=== PATIENT | female | born 1995 ===

== ENCOUNTER 2018-06-21 19:42 | Emergency (ER) | payer SELFPAY ==
[2018-06-21] MEDS ORDERED: Sodium Chloride 0.9% 1,000 ML IV ONE ×2 (21:04→22:33)
--- NOTE | 2018-06-21 21:11 | ED PDOC ---
HPI: Abdomen Time Seen by Provider: 06/21/18 20:44 Chief Complaint (Nursing): GI Problem Chief Complaint (Provider): Pelvic Pain/Preg History Per: Patient History/Exam Limitations: no limitations Onset/Duration Of Symptoms: Days (four to five) Outside of [place] travel?: No Current Symptoms Are (Timing): Still Present (Pt presents to the) Additional Complaint(s): Pt presents to the ED approximately six weeks by a home test complaining of persistent nausea and vomiting that has been prevalent for approximately four days. The patient has left side pelvic pain as well but she denies bleeding, discharge. Pt complains of a sore throat as well. The patient denies fever, diarhhea, constipation, abdominal tenderness. The patient has not yet established OB care nor has she begun prenat vitamins Abnormal Vaginal Bleeding: No Past Medical History Reviewed: Historical Data, Nursing Documentation, Vital Signs Vital Signs: Last Vital Signs Temp 98.6 F 06/21/18 20:29 Pulse 84 06/21/18 20:29 Resp 16 06/21/18 20:29 BP 106/65 06/21/18 20:29 Pulse Ox 97 06/21/18 20:29 - Family History Family History: States: Unknown Family Hx - Home Medications Home Medications: Ambulatory Orders Medication Instructions Recorded Doxylamine/Pyridoxine HCl (B6) 1 tab PO ASDIR #20 tablet. 06/22/18 [Jodi Barrientos 10-10 mg Tablet] Comb No.42/Folic Acid 1 tab PO DAILY #90 tab 06/22/18 [Prena1 Chew Tablet] - Allergies Allergies/Adverse Reactions: Allergies Allergy/AdvReac Type Severity Reaction Status Date / Time No Known Allergies Allergy Verified 06/21/18 20:27 Review of Systems ROS Statement: Except As Marked, All Systems Reviewed And Found Negative ENT: Positive for: Throat Pain Gastrointestinal: Positive for: Nausea, Vomiting Genitourinary Female: Positive for: Pelvic Pain Physical Exam - Reviewed Nursing Documentation Reviewed: Yes Vital Signs Reviewed: Yes - Physical Exam Appears: Positive for: Well, Non-toxic, No Acute Distress. Negative for: Uncomfortable Head Exam: Positive for: ATRAUMATIC, NORMAL INSPECTION Skin: Positive for: Normal Color, Warm, Dry. Negative for: Diaphoresis, Pallor, Rash Eye Exam: Positive for: Normal appearance, PERRL. Negative for: Periorbital swelling, Periorbital tenderness ENT: Positive for: Pharynx Is (erythematous bilaterally without tonsillar exudate; the tonsills are at +2/+2 and are visible beyond the pillars. ), Tonsillar Swelling Neck: Positive for: Supple (with +1 and +1 cervical nodes) Pulses-Carotid (L): 2+ Pulses-Carotid (R): 2+ Pulses-Radial (L): 2+ Pulses-Radial (R): 2+ Gastrointestinal/Abdominal: Positive for: Bowel Sounds (normal in all four quadrants), Soft. Negative for: Tenderness (there is pelvic tenderness to palpation on the left), Distended, Guarding, Rebound - Laboratory Results Result Diagrams: 06/21/18 21:45 06/21/18 21:45 Urine POC: Positive Urine dip results: Negative for: Leukocyte Esterase, Blood, Nitrate, Ketones, Glucose, Bilirubin, Protein - ECG O2 Sat by Pulse Oximetry: 97 Medical Decision Making Medical Decision Making: I: R/O normal P: fluids, zofran, cbc and cmp; TVultra sound 2200 - on re-evaluation, the patient remains stable and is no longer nauseus 2330 - on re-evaluation the patient remains stable 23:21 Transvaginal US Findings Uterus Single Live intrauterine gestation. CRL measures 0.5 cm, equivalent to 6 weeks 1 day gestation. Gestational sac measures 1.7 cm in diameter, equivalent to 6 weeks 0 days g estation. Yolk sac measures 0.3 cm. Heart rate: 122 bpm. Uterus measures 7.5 x 4.4 x 5.3 cm. Anteverted. No mass. Cervix Measures 4.8 cm. Long and closed. No cervical abnormality seen. Right Ovary Measures 2.0 x 1.8 x 2.6 cm. Normal flow. Right ovarian cyst/follicle measuri ng 0.5 x 0.7 x 0.5 cm. Left Ovary Measures 2.2 x 1.9 x 2.3 cm. No mass. Normal flow. Free Fluid None. Other Findings None. Impression Single live intrauterine gestation 6 weeks 1 day (+/- 3 days). heart rate 122 beats per minute. Cervix closed. Right ovarian cyst/follicle. 0040 - The patient is stable and the dry read of the US were discussed with the patient. Return to Ed criteri - increased pain, increased fever and the inabiltity to stop vomiting with medicaiton - were discussed with the patient. All questions were responded to. rx jodi The patient is stable for discharge Disposition - Clinical Impression Clinical Impression: , Ovarian cyst - Patient ED Disposition Is Patient to be Admitted: No Doctor Will See Patient In The: Office Counseled Patient/Family Regarding: Diagnosis, Need For Followup, Rx Given - Disposition Referrals: [facility]Outside] [facility] [Outside] Disposition: Routine/Home Disposition Time: 00:44 Condition: STABLE Prescriptions: Doxylamine/Pyridoxine HCl (B6) [Jodi Barrientos 10-10 mg Tablet] 1 tab PO ASDIR #20 tablet. Comb No.42/Folic Acid [Prena1 Chew Tablet] 1 tab PO DAILY #90 tab Instructions: Ovarian Cysts, Medications and , Alcohol and , Ovarian Cyst (DC), - The Second Month, - The Third Month Forms: [employer] (Welsh)
[2018-06-21 21:56] LABS: BASO # 0.1 K/uL (0.0-0.2); BASO % 1.4 % (0.0-2.0); EOS % 0.1 % (0.0-4.0); HEMOGLOBIN 12.4 g/dL (12.0-16.0); LYMPH # 1.7 K/uL (1.0-4.3); LYMPH % 25.9 % (20.0-40.0); MEAN CORPUSCULAR HEMOGLOBIN 30.1 pg (27.0-31.0); MEAN CORPUSCULAR HGB CONC 33.1 g/dL (33.0-37.0); MEAN PLATELET VOLUME 8.9 fl (7.2-11.7); MONO # 0.6 K/uL (0.0-0.8); MONO % 8.9 % (0.0-10.0); NEUT # 4.2 K/uL (1.8-7.0); NEUT % 63.7 % (50.0-75.0); RBC 4.11 Mil/uL (3.80-5.20); RED CELL DISTRIBUTION WIDTH 13.7 % (11.5-14.5); WHITE BLOOD COUNT 6.5 K/uL (4.8-10.8)
[2018-06-21 22:08] LABS: ALB/GLOB RATIO 1.3 (1.0-2.1); ALBUMIN 4.2 g/dL (3.5-5.0); ALT/SGPT 42 U/L (9-52); AST/SGOT 44 U/L (14-36); BLOOD UREA NITROGEN 6 mg/dl (7-17); CALCIUM 9.4 mg/dL (8.4-10.2); GFR NON-AFRICAN AMERICAN > 60
[2018-06-21 22:11] LABS: SQUAMOUS EPITHIAL 2 /hpf (0-5); URINE BILIRUBIN NEGATIVE (NEGATIVE); URINE BLOOD NEGATIVE (NEGATIVE); URINE CLARITY SLIGHTY-CLOUDY (Clear); URINE COLOR YELLOW (YELLOW); URINE GLUCOSE (UA) NEG (NEGATIVE); URINE LEUKOCYTE ESTERASE NEG Leu/uL (Negative); URINE PROTEIN NEGATIVE (NEGATIVE); URINE UROBILINOGEN 0.2-1.0 mg/dL (0.2-1.0)
[2018-06-22 03:24] VITALS: BP 104/57; PULSE 70; RESP 18; TEMP 98.5; O2SAT 100
--- NOTE | 2018-06-22 09:34 | US ---
Date of service: 06/21/2018 PROCEDURE: First trimester ultrasound HISTORY: pelvic pain left COMPARISON: None TECHNIQUE: Standard protocol for this study/examination. FINDINGS: LMP: 05/12/2018. Prior examinations from the current : None TECHNIQUE: Real-time 2D imaging, duplex and color Doppler. FINDINGS: Cardiac activity: Present Rate: 121 BPM Measurements: [place] rump length: 0.46 cm Gestational age based on CRL 6 weeks 1 day Gestational age 6 weeks based on gestational sac measurement 1.68 cm Gestational age derived from LMP: 5 weeks 5 days ERENDIRA based on LMP: 02/16/2019 ERENDIRA based on biometry: 02/13/2019 Gestational concordance documented Yolk sac identified Cervix: No Cervical abnormalities: Negative examination for cervical dilatation or effacement. Closed cervix measuring 4.77 cm Subchorionic hemorrhage: None UTERUS: 4.4 x 5.3 x 7.5 cm. ADNEXA: Right: 1.8 x 2 x 2.6 cm. Sub cm cyst-follicle noted. Normal Doppler arterial waveform documented. Left: 1.9 x 2.3 x 2.2 cm. Normal Doppler arterial waveform documented Fluid in the cul-de-sac: None IMPRESSION: 6 weeks 1 day live intrauterine gestation. Gestational concordance documented. Concordant findings (preliminary report) provided by [facility].
== END 2018-06-22 01:00 | disposition home or self-care (01) ==
LOC: H.ER 19:42
DX: O34.81 Maternal care for other abnormalities of pelvic organs, first trimester (principal); N83.201 Unspecified ovarian cyst, right side; Z3A.01 Less than 8 weeks gestation of pregnancy
CPT/HCPCS: 76830; 80053; 81003; 81025; 84702; 85025; 87070; 87430; 87804; 96361; 96374; 99284; J2405; J7030

== ENCOUNTER 2018-07-04 20:41 | Emergency (ER) | payer SELFPAY ==
[2018-07-04 21:05] VITALS: RESP 16; TEMP 98.5
[2018-07-04] MEDS ORDERED: Lactated Ringer's 1,000 ML IV STA (21:32)
--- NOTE | 2018-07-04 21:35 | ED PDOC ---
HPI:Nausea, Vomiting, Diarrhea Time Seen by Provider: 07/04/18 21:20 Chief Complaint (Nursing): GI Problem Chief Complaint (Provider): vomiting History Per: Patient History/Exam Limitations: no limitations Onset/Duration Of Symptoms: Days (2) Current Symptoms Are (Timing): Still Present Additional Complaint(s): 23 y/o female, approximately 8 weeks , presents for evaluation of persistent vomiting since last night. Patient states she was prescribed Diclegis from previous ED visit for same but she was unable to keep it down. Denies fever, headache, dizziness, chest pain, shortness of breath, palpitations, abdominal pain, dysuria, hematuria, vaginal discharge/bleeding. Abnormal Vaginal Bleeding: No Last Menstral Period: 05/12/18 : 1 Para: 0 Miscarriage: 0 Past Medical History Reviewed: Historical Data, Nursing Documentation, Vital Signs Vital Signs: Last Vital Signs Temp 98.5 F 07/04/18 21:03 Pulse 75 07/04/18 21:03 Resp 16 07/04/18 21:03 BP 101/55 L 07/04/18 21:03 Pulse Ox 98 07/04/18 21:03 - Medical History PMH: No Chronic Diseases - Surgical History Surgical History: No Surg Hx - Family History Family History: States: Unknown Family Hx - Home Medications Home Medications: Ambulatory Orders Medication Instructions Recorded Doxylamine/Pyridoxine HCl (B6) 1 tab PO ASDIR #20 tablet. 06/22/18 [Cholo Barrientos 10-10 mg Tablet] Comb No.42/Folic Acid 1 tab PO DAILY #90 tab 06/22/18 [Prena1 Chew Tablet] Doxylamine/Pyridoxine HCl (B6) 1 - 2 each PO HS #16 tablet. 07/05/18 [Cholo Barrientos 10-10 mg Tablet] - Allergies Allergies/Adverse Reactions: Allergies Allergy/AdvReac Type Severity Reaction Status Date / Time No Known Allergies Allergy Verified 06/21/18 20:27 Review of Systems ROS Statement: Except As Marked, All Systems Reviewed And Found Negative Gastrointestinal: Positive for: Nausea, Vomiting Physical Exam - Reviewed Nursing Documentation Reviewed: Yes Vital Signs Reviewed: Yes - Physical Exam Appears: Positive for: Well, Non-toxic, No Acute Distress Head Exam: Positive for: ATRAUMATIC, NORMAL INSPECTION, NORMOCEPHALIC Skin: Positive for: Normal Color Eye Exam: Positive for: Normal appearance ENT: Positive for: Normal ENT Inspection Cardiovascular/Chest: Positive for: Regular Rate, Rhythm Respiratory: Positive for: Normal Breath Sounds Gastrointestinal/Abdominal: Positive for: Normal Exam Back: Positive for: Normal Inspection Extremity: Positive for: Normal ROM Neurological/Psych: Positive for: Awake, Alert, Oriented (x3) - Laboratory Results Result Diagrams: 07/04/18 22:00 07/04/18 22:00 - ECG O2 Sat by Pulse Oximetry: 98 - Progress ED Course And Treament: -cbc -cmp -IV LR bolus -IV reglan On re-eval, patient states she is feeling much better. 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 Instructions: Nausea and Vomiting of (DC)
[2018-07-04 22:05] LABS: BASO % 0.4 % (0.0-2.0); EOS % 0.2 % (0.0-4.0); HEMOGLOBIN 12.8 g/dL (12.0-16.0); LYMPH % 23.7 % (20.0-40.0); MEAN CELL VOLUME 90.4 fl (81.0-99.0); MEAN CORPUSCULAR HEMOGLOBIN 30.2 pg (27.0-31.0); MEAN CORPUSCULAR HGB CONC 33.5 g/dL (33.0-37.0); MEAN PLATELET VOLUME 8.7 fl (7.2-11.7); MONO # 0.8 K/uL (0.0-0.8); MONO % 9.2 % (0.0-10.0); NEUT # 5.6 K/uL (1.8-7.0); NEUT % 66.5 % (50.0-75.0); NRBC % 0.1 % (0.0-0.0); RBC 4.23 Mil/uL (3.80-5.20); RED CELL DISTRIBUTION WIDTH 13.8 % (11.5-14.5); WHITE BLOOD COUNT 8.4 K/uL (4.8-10.8)
[2018-07-04 22:09] LABS: SQUAMOUS EPITHIAL 10 /hpf (0-5); URINE BACTERIA RARE (<OCC); URINE BILIRUBIN NEGATIVE (NEGATIVE); URINE BLOOD NEGATIVE (NEGATIVE); URINE CLARITY CLOUDY (Clear); URINE COLOR YELLOW (YELLOW); URINE GLUCOSE (UA) NEG (NEGATIVE); URINE LEUKOCYTE ESTERASE NEG Leu/uL (Negative); URINE PROTEIN NEGATIVE (NEGATIVE); URINE UROBILINOGEN 0.2-1.0 mg/dL (0.2-1.0)
[2018-07-04 22:16] LABS: ALB/GLOB RATIO 1.3 (1.0-2.1); ALBUMIN 4.1 g/dL (3.5-5.0); ALT/SGPT 46 U/L (9-52); AST/SGOT 41 U/L (14-36); BLOOD UREA NITROGEN 6 mg/dl (7-17); CALCIUM 9.6 mg/dL (8.4-10.2); GFR NON-AFRICAN AMERICAN > 60
[2018-07-05 01:45] VITALS: BP 103/69; PULSE 73; O2SAT 99
== END 2018-07-05 00:28 | disposition home or self-care (01) ==
LOC: H.ER 20:41
DX: O21.9 Vomiting of pregnancy, unspecified (principal); Z3A.08 8 weeks gestation of pregnancy